=== PATIENT | female | born 2000 | race Caucasian/White ===

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

== ENCOUNTER 2018-06-08 16:51 | Inpatient (IN) ==
[2018-06-08] MEDS ORDERED: Penicillin G Potassium Inj 5,000,000 UNIT in Sodium Chloride 0.9% Inj 100 ML IV.SIG ONE (17:06)
[2018-06-08] MEDS ORDERED: Oxytocin 30 Units/500ml Premix 30 UNITS/500 ML BAG IV.SIG ONE (17:06)
[2018-06-08] MEDS ORDERED: Naloxone Inj 0.4 MG/ML Vial IV.PUSH PRN (17:06)
[2018-06-08] MEDS ORDERED: Sod Chloride 0.9% Inj 1,000 ML IV.CONT PRN (17:06)
[2018-06-08] MEDS ORDERED: fentaNYL Citrate Inj 100 MCG/2 ML Ampul IV.PUSH PRN ×2 (17:06)
[2018-06-08] MEDS ORDERED: Sodium Chlor 0.9% Inj 500 ML IV.SIG PRN (17:06)
[2018-06-08] MEDS ORDERED: Citric Acid/Sodium Citrate Liq 30 ML UDC PO SCH (17:15)
--- NOTE | 2018-06-08 17:33 | ED ---
History of Present Illness Primary Care Physician: NOT REQUIRED Chief Complaint: uterine contractions History of Present Illness: Patient is a 17 yo at 39 weeks and 4 days who presents with c/o 'worsening ' uterine contractions. Patient [facility] with [facility], but admits missing the last 3 appointments. She was seen in OB ED last week with c/o contractions. Cervical exam was fingertip. Patient states she has been mary all day, but worsening around noon. Contractions were about 6 hours apart prior to leaving home. She denies vaginal bleeding. She reports 'wet underwear' but no clear history of leaking fluid. Weeks Gestation:: 39 Para: 0 : 1 Review of Systems All other systems reviewed negative except as stated in HPI PMFSH - History History Provided By: Patient - Medical History Medical History: Medical History (Last Reviewed 03/29/18 @ 22:51 by Mariah Burk MD, R1) Patient denies medical problems - Surgical History Surgical History: Surgical History (Last Reviewed 03/29/18 @ 22:51 by Mariah Burk MD, R1) No history of previous surgery - Family History Family History: Family History (Last Updated 03/07/18 @ 22:29 by Digna Null MD, R2) Other No significant family history - Tobacco History Second Hand Smoke Exposure: No Smoking Status: Former smoker Tobacco Type: Cigarettes - Alcohol History How Often Do You Have a Drink Containing Alcohol: Never - Substance Use History Substance History: No History of Abuse - Travel History History of Recent Travel: No Recent Travel in the [facility] Within the Last 8 Weeks: No Medications and Allergies Allergies Allergy/AdvReac Type Severity Reaction Status Date / Time No Known Allergies Allergy Verified 06/08/18 17:19 Home Medications Medication Instructions Recorded Confirmed Type Vitamin 1 tab PO DAILY 04/01/18 04/01/18 History Exam Narrative: GENERAL: Well-nourished, well-developed patient. SKIN: Warm and dry. HEAD: Normocephalic and atraumatic. EYES: No scleral icterus. No injection or drainage. ENT: No nasal drainage noted. Mucous membranes pink. Airway patent. NECK: Supple, trachea midline. No JVD. CARDIOVASCULAR: Regular rate and rhythm without murmurs, gallops, or rubs. RESPIRATORY: Breath sounds equal bilaterally. No accessory muscle use. BREASTS: Bilateral exam showed no masses , no retractions, no nipple discharge. ABDOMEN/GI: Abdomen soft, non-tender, bowel sounds present, no rebound, no guarding Gravid to [39] weeks size EFW by Alan's 6-7 lbs Fundal Height: [-] GENITOURINARY: External Genitalia: intact and normal in appearance BUS glands: [wnl] Cervix: [soft] Dilatation: [4cm] Effacement: [70%] Station: [-2] POSTERIOR Presentation: [vertex] Membranes: [intact or ruptured] Uterine Contractions: [5-6 minutes] FHT's: Category: [1] Baseline: [130s] Reactive: [-] Variability: [moderate] Decels: [none] EXTREMITIES: No cyanosis or edema. BACK: Nontender without obvious deformity. No CVA tenderness. NEUROLOGICAL: Awake and alert. Motor and sensory grossly within normal limits. Five out of 5 muscle strength in all muscle groups. Normal speech. 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 - Carrier of Group B streptococcus Status: Acute Plan: will start GBS antibiotic prophylaxis, (4) History of maternal chlamydia infection, currently Code(s): O09.299 - Supervision of with other poor reproductive or obstetric history, unspecified trimester; Z86.19 - Personal history of other infectious and parasitic diseases; Z87.59 - Personal history of other complications of , childbirth and the puerperium Status: Acute Plan: Treated for Chlamydia 05/2018, but no posttreatment GERA Discharge Plan - Discharge Disposition Patient Disposition: ED Admit(ED Internal Use Only) - Discharge Condition Condition: Good - Discharge Details Diagnosis: 39 weeks gestation of , Admitted to labor and delivery, GBS carrier, History of maternal chlamydia infection, currently - Physicians Team ED Provider: Juan Carlos Brown Primary Care Provider: NOT REQUIRED,
--- NOTE | 2018-06-08 17:41 | P.OBGPN ---
[facility] [address] [place] [address] [id number] [place] [address] Emergency Department Note Signed Patient: Ally White MR#: [id number] : 2000 Acct: [id number] Age/Sex: 17 / F ADM Date: 06/08/18 Loc: H2E 228-A Report Date: 06/08/[address]: Juan Carlos Brown MD cc: History of Present Illness Primary Care Physician: NOT REQUIRED Chief Complaint: uterine contractions History of Present Illness: Patient is a 17 yo at 39 weeks and 4 days who presents with c/o 'worsening ' uterine contractions. Patient receives her care with the [facility], but admits missing the last 3 appointments. She was seen in OB ED last week with c/o contractions. Cervical exam was fingertip. Patient states she has been mary all day, but worsening around noon. Contractions were about 6 hours apart prior to leaving home. She denies vaginal bleeding. She reports 'wet underwear' but no clear history of leaking fluid. Weeks Gestation:: 39 Para: 0 : 1 Review of Systems All other systems reviewed negative except as stated in HPI PMFSH - History History Provided By: Patient - Medical History Medical History: Medical History (Last Reviewed 03/29/18 @ 22:51 by Mariah Burk MD, R1) Patient denies medical problems - Surgical History Surgical History: Surgical History (Last Reviewed 03/29/18 @ 22:51 by Mariah Burk MD, R1) No history of previous surgery - Family History Family History: Family History (Last Updated 03/07/18 @ 22:29 by Digna Null MD, R2) Other No significant family history - Tobacco History Second Hand Smoke Exposure: No Smoking Status: Former smoker Tobacco Type: Cigarettes - Alcohol History How Often Do You Have a Drink Containing Alcohol: Never - Substance Use History Substance History: No History of Abuse - Travel History History of Recent Travel: No Recent Travel in the [facility] Within the Last 8 Weeks: No Medications and Allergies Allergies Allergy/AdvReac Type Severity Reaction Status Date / Time No Known Allergies Allergy Verified 06/08/18 17:19 Home Medications Medication Instructions Recorded Confirmed Type Vitamin 1 tab PO DAILY 04/01/18 04/01/18 History Exam Narrative: GENERAL: Well-nourished, well-developed patient. SKIN: Warm and dry. HEAD: Normocephalic and atraumatic. EYES: No scleral icterus. No injection or drainage. ENT: No nasal drainage noted. Mucous membranes pink. Airway patent. NECK: Supple, trachea midline. No JVD. CARDIOVASCULAR: Regular rate and rhythm without murmurs, gallops, or rubs. RESPIRATORY: Breath sounds equal bilaterally. No accessory muscle use. BREASTS: Bilateral exam showed no masses , no retractions, no nipple discharge. ABDOMEN/GI: Abdomen soft, non-tender, bowel sounds present, no rebound, no guarding Gravid to [39] weeks size EFW by Alan's 6-7 lbs Fundal Height: [-] GENITOURINARY: External Genitalia: intact and normal in appearance BUS glands: [wnl] Cervix: [soft] Dilatation: [4cm] Effacement: [70%] Station: [-2] POSTERIOR Presentation: [vertex] Membranes: [intact or ruptured] Uterine Contractions: [5-6 minutes] FHT's: Category: [1] Baseline: [130s] Reactive: [-] Variability: [moderate] Decels: [none] EXTREMITIES: No cyanosis or edema. BACK: Nontender without obvious deformity. No CVA tenderness. NEUROLOGICAL: Awake and alert. Motor and sensory grossly within normal limits. Five out of 5 muscle strength in all muscle groups. Normal speech. 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 - Carrier of Group B streptococcus Status: Acute Plan: will start GBS antibiotic prophylaxis, (4) History of maternal chlamydia infection, currently Code(s): O09.299 - Supervision of with other poor reproductive or obstetric history, unspecified trimester; Z86.19 - Personal history of other infectious and parasitic diseases; Z87.59 - Personal history of other complications of , childbirth and the puerperium Status: Acute Plan: Treated for Chlamydia 05/2018, but no posttreatment GERA Discharge Plan - Discharge Disposition Patient Disposition: ED Admit(ED Internal Use Only) - Discharge Condition Condition: Good - Discharge Details Diagnosis: 39 weeks gestation of , Admitted to labor and delivery, GBS carrier, History of maternal chlamydia infection, currently - Physicians Team ED Provider: Juan Carlos Brown Primary Care Provider: NOT REQUIRED, Documented By: Juan Carlos Brown MD 06/08/18 [id number] Signed By: <Electronically signed by Juan Carlos Brown MD> 06/08/18 [id number]
[2018-06-08] MEDS ORDERED: Influenza (Quadrivalent) Vaccine 0.5 ML Syringe IM ONE (18:00)
[2018-06-08 18:04] LABS: Baso % (Auto) 0.4 % (0.0-2.0); Eos # (Auto) 0.2 th/mm3 (0.0-0.4); Eos % (Auto) 1.9 % (0.0-4.0); Hematocrit 35.4 % (35.0-46.0); Lymph # (Auto) 2.6 th/mm3 (1.0-4.8); Lymph % (Auto) 25.7 % (9.0-44.0); Mean Corpuscular Hemoglobin 32.4 pg (27.0-34.0); Mean Corpuscular Volume 88.3 fL (80.0-100.0); Mean Platelet Volume 11.2 fL (7.0-11.0); Mono # (Auto) 0.7 th/mm3 (0.0-0.9); Mono % (Auto) 6.4 % (0.0-8.0); Neut # (Auto) 6.6 th/mm3 (1.8-7.7); Neut % (Auto) 65.6 % (16.0-70.0); Platelet Count 155 th/mm3 (150-450); Red Blood Count 4.01 mil/mm3 (4.00-5.30); Red Cell Distribution Width 12.7 % (11.6-17.2); White Blood Count 10.1 th/mm3 (4.0-11.0)
[2018-06-08 18:09] LABS: Mean Corpuscular HGB Conc 36.7 % (32.0-36.0)
[2018-06-08 18:19] LABS: Amphetamine Urine With Conf Neg (Neg); Benzodiazepine Urine With Conf Neg (Neg); Cocaine Urine With Conf Neg (Neg); Opiates Urine With Conf Neg (Neg)
[2018-06-08 18:21] LABS: Bacteria,Urine Few /hpf; Bilirubin,Urine Negative (Negative); Clarity,Urine Hazy (Clear); Color,Urine Yellow (Yellw/Straw); Glucose,Urine (UA) Negative (Negative); Hyaline Casts,Urine 1 /lpf (0-3); Leukocyte Esterase,Urine Large (Negative); Mucus,Urine Few /lpf (Occasional); Nitrite,Urine Negative (Negative); Specific Gravity,Urine 1.023 (1.002-1.035); Squamous Epithelial Cell,Urine 11 /hpf (0-5)
[2018-06-08 18:24] LABS: Cannabinoid Urine With Conf Pos (Neg)
[2018-06-08 18:39] LABS: Platelet Estimate Normal (Normal); Platelet Morphology Normal (Normal); Spherocytes 1+
[2018-06-08] MEDS ORDERED: Penicillin G Potassium Inj 2,500,000 UNIT in Sodium Chlor 0.9% Inj 100 ML IV.SIG SCH (21:17)
[2018-06-08] MEDS ORDERED: Oxytocin 30 Units/500ml Premix 30 UNITS/500 ML BAG IV.SIG PRN (21:40)
--- NOTE | 2018-06-08 21:57 | P.OBLABOR ---
Subjective Interval history: Patient is a 17 year old at 39 weeks and 4 days admitted in active labor. Patient in pain, declines epidural at this time. AROM at 21:45. Clear fluid. Objective Vital Signs: Vital Signs - 8 hr 06/08/18 17:13 06/08/18 17:26 06/08/18 17:30 Temperature 97.6 F Pulse Rate 92 H 75 Respiratory Rate 17 16 Blood Pressure 117/73 130/72 06/08/18 18:37 06/08/18 19:00 Temperature 97.6 F Pulse Rate 63 66 Respiratory Rate 18 Blood Pressure 127/68 133/77 Objective: Pelvic Exam: Dilatation: 5 cm Effacement: 80% Station: -2 Presentation: vertex Membranes: AROM Uterine Contractions: q2-4min Weeks Gestation: 39 Patient Started Active Labor: Yes Medical Induction of Labor: No Artificial Rupture of Membrane: Yes (21:45) Assessment and Plan - Diagnosis (1) 39 weeks gestation of Code(s): Z3A.39 - 39 weeks gestation of Status: Acute (2) Admitted to labor and delivery Code(s): Z78.9 - Other specified health status Status: Acute (3) GBS carrier Code(s): Z22.330 - Carrier of Group B streptococcus Status: Acute - Plan Patient is a 17 year old at 39 weeks and 4 days admitted in active labor. GBS positive; patient receiving penicillin. Anticipate vaginal delivery. [facility] OB hospitalist
[2018-06-08] MEDS: Penicillin G Potassium Inj 2,500,000 UNIT in Sodium Chlor 0.9% Inj 100 ML IV.SIG SCH (22:00)
[2018-06-08] MEDS ORDERED: fentaNYL 2MCG-Bupiv 0.125% Epi 150 ML EPIDURAL ONE (22:34)
[2018-06-08] MEDS ORDERED: Lidocaine PF 1% Inj 5 ML Vial ONE (22:43)
[2018-06-08] MEDS ORDERED: Lidocaaine 1.5%/Epinephrine 1:200,000 PF Inj 5 ML Amp ONE (22:43)
[2018-06-09] MEDS ORDERED: Lidocaine 1% Inj 50 ML Vial ONE (01:55)
[2018-06-09] MEDS: Penicillin G Potassium Inj 2,500,000 UNIT in Sodium Chlor 0.9% Inj 100 ML IV.SIG SCH (02:00)
--- NOTE | 2018-06-09 02:44 | P.OBDELI ---
Weeks Gestation: 39 Patient Started Active Labor: Yes Medical Induction of Labor: No Artificial Rupture of Membrane: Yes Artificial ROM Date: 06/08/18 Artificial ROM Time: 21:45 Anesthesia: Epidural Episiotomy: none Vaginal Delivery: Normal Presentation: Vertex Nuchal Cord: None Delayed Cord Clamping (45 sec): Yes Placenta: Spontaneous delivery, Intact, 3 vessel cord Laceration: 1 deg Repair: Vicryl running Estimated blood loss (mL): 150 : Male, Single Male A Delivery Date: 06/09/18 Infant Delivery Time: 02:20 Weight: 2.7 kg score (1 min): 8 score (5 min): 8 Additional Information: Resident delivery with Dr. Brown.
[2018-06-09] MEDS ORDERED: Naloxone Inj 0.4 MG/ML Vial IV.PUSH PRN (02:45)
[2018-06-09] MEDS ORDERED: Acetaminophen 325 MG Tablet PO PRN (02:45)
[2018-06-09] MEDS ORDERED: Oxytocin 30 Units/500ml Premix 30 UNITS/500 ML BAG IV.CONT PRN (02:45)
[2018-06-09] MEDS ORDERED: Zolpidem Tartrate 5 MG Tablet PO PRN (02:45)
[2018-06-09] MEDS ORDERED: Witch Hazel 50%/Glyderin 12.5% 40 Pad Jar RECTAL PRN (02:45)
[2018-06-09] MEDS ORDERED: Benzocaine 20% Top Spray 60 ML Can TOPICAL PRN (02:45)
[2018-06-09] MEDS ORDERED: fentaNYL 2MCG-Bupiv 0.125% Epi 150 ML EPIDURAL PRN (03:03)
[2018-06-09] MEDS ORDERED: fentaNYL Citrate Inj 100 MCG/2 ML Ampul EPIDURAL ONE (03:03)
[2018-06-09] MEDS: Senna/Docusate Sodium 8.6/50 MG Tablet PO SCH ×2 (08:00→21:08)
[2018-06-09] MEDS ORDERED: Measles/Mumps/Rubella Vaccine Inj 0.5 ML Vial SQ ONE (16:00)
[2018-06-09] MEDS ORDERED: Diphtheria/Tetanus/Pertussis Vaccine Inj 0.5 ML Syringe IM ONE (16:00)
[2018-06-09] MEDS ORDERED: Influenza (Quadrivalent) Vaccine 0.5 ML Syringe IM ONE (18:00)
--- NOTE | 2018-06-10 07:43 | P.PNOB ---
Subjective Post day: 1 Interval history: Patient is a 17-year-old delivered at 39 weeks and 5 days. Patient is day 1 after NVD. Patient's pain is well-controlled. Patient reports minimal bleeding. Patient reports eating and drinking without any nausea or vomiting. Patient has passed gas and has had a bowel movement. Patient denies chest pain and shortness of breath. Patient has been ambulating; she denies lower extremity pain. Patient reports desire for contraception, which she will discuss with her PCP at her first follow-up visit. Patient has decided to formula-feed; UDS on admission was marijuana positive. DCF involved. Objective Vital Signs/I&O: Vital Signs 06/09/18 20:30 Temperature 98.1 F Pulse Rate 68 Respiratory Rate 17 Blood Pressure 120/57 L Intake & Output 06/09/18 06/10/18 06/10/18 18:59 06:59 18:59 Intake Total 0 / 0 Balance 0 / 0 Intake: Intake (Blood Product) Amt 0 / 0 Rho(D) Immune Globulin Unit 0 / 0 [id number] Result Diagrams: 06/08/18 17:35 Objective Remarks: GENERAL: Well-nourished, well-developed patient. CARDIOVASCULAR: Regular rate and rhythm without murmurs, gallops, or rubs. RESPIRATORY: Breath sounds equal bilaterally. No accessory muscle use. ABDOMEN/GI: Abdomen soft, non-tender. Fundus: Firm, non-tender at umbilicus. GENITOURINARY: Light to moderate bleeding. EXTREMITIES: No cyanosis or edema, non-tender, without signs of DVT. Medications and IVs: Active Medications Acetaminophen (Tylenol) 650 mg PO Q4H PRN PRN Reason: PAIN SCALE 1 TO 2 Al Hydroxide/Mg Hydroxide (Milk Of Magnesia Liq) 30 ml PO Q12H PRN PRN Reason: Mild Constipation Benzocaine (Americaine 20% Top [place]) 1 spray TOPICAL Q4H PRN PRN Reason: For Perineum Discomfort Last Admin: 06/09/18 21:12 Dose: 1 spray Oxytocin (Pitocin 30 Units/Ns 500 Ml Premix) 30 units in 500 mls @ 100 mls/hr IV.CONT UNSCH PRN PRN Reason: Heavy bleeding Fentanyl/Bupivacaine/Sodium Chlor (Fentanyl 2 Mcg-Bupiv 0.125% Epi) 150 mls @ 12 mls/hr EPIDURAL PRN PRN PRN Reason: for Labor Pain Last Admin: 06/08/18 23:00 Dose: 12 mls/hr Ibuprofen (Motrin) 800 mg PO Q8H PRN PRN Reason: For Cramping Last Admin: 06/10/18 04:02 Dose: 800 mg Naloxone HCl (Narcan Inj) 0.1 mg IV.PUSH Q2M PRN PRN Reason: for opiate reversal Ondansetron HCl (Zofran Odt) 4 mg PO Q6H PRN PRN Reason: NAUSEA OR VOMITING Oxycodone/Acetaminophen (Percocet 5/325 Mg) 1 tab PO Q4H PRN PRN Reason: PAIN SCALE 3 TO 5 Oxycodone/Acetaminophen (Percocet 5/325 Mg) 2 tab PO Q4H PRN PRN Reason: PAIN SCALE 6 TO 10 Senna/Docusate Sodium (Leilani-Colace) 1 tab PO BID [facility] Last Admin: 06/09/18 21:08 Dose: 1 tab Sennosides (Senokot) 17.2 mg PO Q12H PRN PRN Reason: Moderate Constipation Sodium Chloride (Ns Flush) 2 ml IV.FLUSH BID [facility] Last Admin: 06/09/18 21:08 Dose: 2 ml Sodium Chloride (Ns Flush) 2 ml IV.FLUSH PRN PRN PRN Reason: FLUSH AFTER USING IV ACCESS Witch Sabra/Glycerin (Tucks Pads) 1 applicatio RECTAL QID PRN PRN Reason: HEMORRHOIDS Last Admin: 06/09/18 21:11 Dose: 1 applicatio Zolpidem Tartrate (Ambien) 5 mg PO HS PRN PRN Reason: SLEEP Assessment and Plan - Diagnosis (1) 39 weeks gestation of Code(s): Z3A.39 - 39 weeks gestation of Status: Acute (2) GBS carrier Code(s): Z22.330 - Carrier of Group B streptococcus Status: Acute (3) Vaginal delivery Code(s): Z78.9 - Other specified health status Status: Acute - Plan Patient is a 17-year-old delivered at 39 weeks and 5 days. Patient is day 1 after NVD. Continue routine care. Motrin and Percocet when necessary for pain. Encourage OOB. Pelvic rest for 6 weeks will need follow-up appointment at that time. Contraception: To discuss with PCP at follow-up. Anticipate discharge tomorrow. dw Dr. Duff. - Attending Attestation The exam, history, and the medical decision-making described in the above note were completed with the assistance of the resident physician. I reviewed and agree with the findings presented. I attest that I had a [id number] encounter with the patient on the same day, and personally performed and documented my assessment and findings in the medical record. -Kate Duff M.D.
[2018-06-10] MEDS ORDERED: Rho Immune Globulin Inj 1,500 UNIT/1.3 ML Vial IM ONE ×2 (08:45→16:00)
[2018-06-10] MEDS: Senna/Docusate Sodium 8.6/50 MG Tablet PO SCH ×2 (09:00→20:48)
[2018-06-11 07:51] VITALS: BP 114/65; PULSE 61; RESP 20; TEMP 98.4
[2018-06-11] MEDS: Senna/Docusate Sodium 8.6/50 MG Tablet PO SCH (08:35)
--- NOTE | 2018-06-11 09:00 | P.PNOB ---
Subjective Interval history: Patient is a 17-year-old delivered at 39 weeks and 5 days. Patient is day 2 after NVD. Patient's pain is well-controlled. Patient reports minimal bleeding. Patient reports eating and drinking without any nausea or vomiting. Patient has passed gas and has had a bowel movement. Patient denies chest pain and shortness of breath. Patient has been ambulating; she denies lower extremity pain. Patient reports desire for contraception, which she will discuss with her PCP at her first follow-up visit. Patient has decided to formula-feed; UDS on admission was marijuana positive. DCF involved. Objective Vital Signs/I&O: Vital Signs 06/10/18 19:49 06/11/18 07:50 Temperature 97.8 F 98.4 F Pulse Rate 69 61 Respiratory Rate 18 20 Blood Pressure 139/56 L 114/65 Result Diagrams: 06/08/18 17:35 Objective Remarks: GENERAL: Well-nourished, well-developed patient. CARDIOVASCULAR: Regular rate and rhythm without murmurs, gallops, or rubs. RESPIRATORY: Breath sounds equal bilaterally. No accessory muscle use. ABDOMEN/GI: Abdomen soft, non-tender. Fundus: Firm, non-tender at umbilicus. GENITOURINARY: Light to moderate bleeding. EXTREMITIES: No cyanosis or edema, non-tender, without signs of DVT. Medications and IVs: Active Medications Acetaminophen (Tylenol) 650 mg PO Q4H PRN PRN Reason: PAIN SCALE 1 TO 2 Al Hydroxide/Mg Hydroxide (Milk Of Magnesia Liq) 30 ml PO Q12H PRN PRN Reason: Mild Constipation Benzocaine (Americaine 20% Top [place]) 1 spray TOPICAL Q4H PRN PRN Reason: For Perineum Discomfort Last Admin: 06/09/18 21:12 Dose: 1 spray Oxytocin (Pitocin 30 Units/Ns 500 Ml Premix) 30 units in 500 mls @ 100 mls/hr IV.CONT UNSCH PRN PRN Reason: Heavy bleeding Fentanyl/Bupivacaine/Sodium Chlor (Fentanyl 2 Mcg-Bupiv 0.125% Epi) 150 mls @ 12 mls/hr EPIDURAL PRN PRN PRN Reason: for Labor Pain Last Admin: 06/08/18 23:00 Dose: 12 mls/hr Ibuprofen (Motrin) 800 mg PO Q8H PRN PRN Reason: For Cramping Last Admin: 06/11/18 00:04 Dose: 800 mg Naloxone HCl (Narcan Inj) 0.1 mg IV.PUSH Q2M PRN PRN Reason: for opiate reversal Ondansetron HCl (Zofran Odt) 4 mg PO Q6H PRN PRN Reason: NAUSEA OR VOMITING Oxycodone/Acetaminophen (Percocet 5/325 Mg) 1 tab PO Q4H PRN PRN Reason: PAIN SCALE 3 TO 5 Oxycodone/Acetaminophen (Percocet 5/325 Mg) 2 tab PO Q4H PRN PRN Reason: PAIN SCALE 6 TO 10 Senna/Docusate Sodium (Leilani-Colace) 1 tab PO BID [facility] Last Admin: 06/11/18 08:35 Dose: 1 tab Sennosides (Senokot) 17.2 mg PO Q12H PRN PRN Reason: Moderate Constipation Sodium Chloride (Ns Flush) 2 ml IV.FLUSH BID [facility] Last Admin: 06/10/18 13:02 Dose: Not Given Sodium Chloride (Ns Flush) 2 ml IV.FLUSH PRN PRN PRN Reason: FLUSH AFTER USING IV ACCESS Witch Sabra/Glycerin (Tucks Pads) 1 applicatio RECTAL QID PRN PRN Reason: HEMORRHOIDS Last Admin: 06/09/18 21:11 Dose: 1 applicatio Zolpidem Tartrate (Ambien) 5 mg PO HS PRN PRN Reason: SLEEP Assessment and Plan - Diagnosis (1) GBS carrier Code(s): Z22.330 - Carrier of Group B streptococcus Status: Acute (2) Vaginal delivery Code(s): Z78.9 - Other specified health status Status: Acute (3) Rh negative status during Code(s): Z22.330 - Carrier of Group B streptococcus Status: Acute - Plan Patient is a 17-year-old delivered at 39 weeks and 5 days. Patient is day 2 after NVD. Patient is Rh negative, Rhogam administered Continue routine care. Motrin when necessary for pain. Encourage OOB. Pelvic rest for 6 weeks will need follow-up appointment at that time. Contraception: To discuss with PCP at follow-up. Anticipate discharge today edwin [place]
== END 2018-06-11 10:57 | disposition home or self-care (01) ==
LOC: HOBED 16:51 → H2E 17:23 → H1EA 06-09 04:48
PROVIDERS: ADMIT Obstetrics & Gynecology; ATTEND Obstetrics & Gynecology